=== PATIENT | female | born 1995 | race Caucasian/White ===

== ENCOUNTER 2019-01-22 08:29 | Day surgery (SDC) | payer MEDICAID ==
[~2019-01-22 08:29] MED LIST: Morphine 10 mg/5 ml Oral Soln PO PRN
[2019-01-22] MEDS ORDERED: Dextrose 5%/0.45% NS 1,000 ML IV SCH (08:30)
[2019-01-22 09:20] VITALS: PULSE 89; RESP 18; TEMP 98.6; O2SAT 99; BMI 34.7
[2019-01-22] MEDS ORDERED: ceFAZolin 1 gm in NS 2 GM/200 ML BAG IVPB ONE (10:07)
[2019-01-22] MEDS ORDERED: Midazolam 2 MG/2 ML VIAL ONE (11:33)
[2019-01-22] MEDS ORDERED: Propofol 10 mg/ml Inj (20 ML) ONE (11:33)
[2019-01-22] MEDS ORDERED: Succinylcholine Chloride 20 mg/ml Syr (5 ml) IV ONE (11:42)
[2019-01-22] MEDS: HYDROmorphone 0.5 mg/0.5 ml ISec IVP PRN ×2 (12:09→12:18)
[2019-01-22 15:11] VITALS: BP 123/69
--- NOTE | 2019-01-22 21:09 | OP ---
PROCEDURE DATE: 01/22/2019 PREOPERATIVE DIAGNOSIS: Chronic tonsillitis. POSTOPERATIVE DIAGNOSIS: Chronic tonsillitis. PROCEDURE: Tonsillectomy. SIGNIFICANT FINDINGS: Infected tonsils. DESCRIPTION OF PROCEDURE: The patient was brought into the room, placed in a supine position. Anesthesia was initiated through an ET tube. The patient was draped in the usual manner. 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 Right tonsil was grabbed and pulled medially. Incision was made in the anterior tonsillar pillar using coblation. Dissection was done between tonsil and tonsillar fossa using coblation until the tonsil was removed. Bleeding was controlled using coblation. Next, the other tonsil was grabbed and pulled medially. Incision was made in the anterior tonsillar pillar using coblation. Dissection was done between tonsil and tonsillar fossa using coblation until the tonsil was removed. Bleeding was controlled using coblation. Both tonsillar beds were rubbed vigorously with coblation wand. No bleeding was noted. Mouth gag was let down for 30 seconds, put back up, no bleeding was noted. The mouth gag was taken out and removed. The patient was taken off anesthesia and taken to recovery room in a stable manner. Robert Ji MD
== END 2019-01-22 15:13 | disposition home or self-care (01) ==
LOC: C.SDS 08:29
PROVIDERS: ATTEND Otolaryngology
DX: J35.01 Chronic tonsillitis (principal)
CPT/HCPCS: 42826; 88304; J0690; J1170; J2250; J2405; J2704; J3010